=== PATIENT | male | born 1975 | race Two or more races ===

== ENCOUNTER 2022-10-16 19:56 | Emergency (ER) | payer OTHER ==
[~2022-10-16] VITALS: Ht 182.9 cm; Wt 147.4 kg
[2022-10-16] MEDS ORDERED: AVAPRO300 MG PO (20:10)
== END 2022-10-16 22:44 | disposition home or self-care (01) ==
LOC: ER 19:56
DX: H92.01 Otalgia, right ear (principal); G51.0 Bell's palsy

== ENCOUNTER 2022-10-21 18:12 | Emergency (ER) | payer OTHER ==
[~2022-10-21] VITALS: Ht 182.9 cm; Wt 147.4 kg
[~2022-10-21 18:12] MED LIST: AVAPRO300 MG PO
== END 2022-10-21 20:05 | disposition home or self-care (01) ==
LOC: ER 18:12
DX: L03.818 Cellulitis of other sites (principal); H92.01 Otalgia, right ear